=== PATIENT | male | born 1945 | race Caucasian/White ===

== ENCOUNTER 2018-01-12 08:10 | Inpatient (IN) ==
[2018-01-12] MEDS ORDERED: Chlorhexidine Gluconate 2% 1 Pack (2 Cloths) TOPICAL ONE (09:15)
[2018-01-12] MEDS ORDERED: Chlorhexidine 4% Topical 120 APPLIC/120 ML Bottle TOPICAL SCH (09:15)
[2018-01-12] MEDS ORDERED: Sodium Chlor 0.9% Inj 500 ML IV.CONT ONE (09:15)
[2018-01-12] MEDS ORDERED: Metoprolol Tartrate 25 MG Tablet PO ONE (09:15)
[2018-01-12] MEDS ORDERED: Post-op Orders (for Pharmacy) OTHER STA (09:39)
[2018-01-12] MEDS ORDERED: HYDROmorphone PF Inj 1 MG/ML Ampul IV.PUSH PRN (09:39)
[2018-01-12] MEDS ORDERED: Allopurinol 100 MG Tablet PO PRN (09:40)
[2018-01-12] MEDS ORDERED: Dexamethasone Inj 20 MG/5 ML Vial IV.PUSH ONE (10:00)
[2018-01-12] MEDS ORDERED: Tranexamic Acid Inj 3,000 MG in Sodium Chlor 0.9% Inj 100 ML P-ARTICULR SCH (10:00)
[2018-01-12] MEDS ORDERED: Sodium Chlor 0.9% Inj 40 ML, Bupivacaine Liposo PF 1.3% Inj 20 ML P-ARTICULR SCH ×2 (10:00)
[2018-01-12] MEDS ORDERED: SODIUM CHLOR 0.9% IV.SIG SCH (10:00)
[2018-01-12] MEDS ORDERED: TRANEXAMIC ACID IV.SIG SCH (10:00)
[2018-01-12] MEDS ORDERED: Vancomycin Inj 1,000 MG in Sodium Chlor 0.9% Inj 250 ML IV.SIG SCH (10:00)
[2018-01-12] MEDS ORDERED: ceFAZolin 2 GM Premix Inj 2 GM/50 ML PIGGYBACK IV.SIG SCH (10:00)
[2018-01-12] MEDS ORDERED: fentaNYL Citrate Inj 250 MCG/5 ML Ampul ONE (10:09)
[2018-01-12] MEDS ORDERED: Famotidine PF Inj 20 MG/2 ML Vial ONE (10:09)
[2018-01-12] MEDS ORDERED: fentaNYL Citrate Inj 100 MCG/2 ML Ampul ONE (10:09)
[2018-01-12] MEDS ORDERED: Neostigmine Inj 5 MG/5 ML Syringe IV.PUSH ONE (10:42)
[2018-01-12] MEDS ORDERED: Glycopyrrolate Inj 1 MG/5 ML Syringe IV.PUSH ONE (10:42)
[2018-01-12] MEDS ORDERED: Phenylephrine/NS 1000 MCG/10ML Syringe IV.PUSH ONE (10:42)
[2018-01-12] MEDS ORDERED: *morphine SULFATE 4 MG/ML PERIprocedure ONLY ONE (13:41)
--- NOTE | 2018-01-12 14:07 | XR ---
EXAM DATE: 01/12/2018 1:46 PM EST AGE/SEX: 72 years / Male INDICATIONS: Post op right hip. CLINICAL DATA: This is the patient's initial encounter. Patient reports that signs and symptoms have been present for 1 day and indicates a pain score of Nonresponsive. MEDICAL/SURGICAL HISTORY: None. None. COMPARISON: No prior exams available for comparison. FINDINGS: Status post placement of a right hip prosthesis. There is good position and alignment of the right hi p prosthesis. The bony structures are grossly intact. CONCLUSION: Good position and alignment on this postoperative study. Electronically signed by: Denis Babb MD 01/12/2018 2:06 PM EST
[2018-01-12] MEDS ORDERED: *morphine SULFATE 10 MG/ML PERIprocedure ONLY ONE (14:46)
--- NOTE | 2018-01-12 14:49 | MP ---
cc: Alfonso Sanchez MD DATE OF OPERATION: 01/12/2018 PREOPERATIVE DIAGNOSIS: Right hip osteoarthritis. POSTOPERATIVE DIAGNOSIS: Right hip osteoarthritis. PROCEDURE PERFORMED: Right total hip arthroplasty. SURGEON: Alfonso Sanchez MD STOPE MINER: SONAL León ANESTHESIA: General. ESTIMATED BLOOD LOSS: 200 mL COMPLICATIONS: None. IMPLANT USED: DePuy Corail size 14 press-fit standard offset femoral stem, size 52, solid [place] Gription cup, size 36 mm +4 high offset posterior high wall highly cross-linked polyethylene liner, 36 mm ceramic head, +1.5 neck. JUSTIFICATION: This patient is a 72-year-old male with history of severe osteoarthrosis involving the right hip joint. He has severe disabling pain with standing, walking, ambulation, weightbearing activities and severe pain at rest. He has failed greater than 3 months of nonoperative conservative treatment to include medication therapy, injections, ambulatory assistive aids, home exercise program, activity modification and weight loss. X-rays of the right hip reveal severe osteoarthritis with [id number] joint space narrowing, subchondral sclerosis, subchondral cyst, osteophyte formation with deformity and subluxation. The patient was counseled on risks, benefits, and alternatives to a total hip arthroplasty. The risks were discussed, which include, but are not limited to anesthesia, bleeding, infection, damage to nerves and blood vessels, pain, stiffness, fracture dislocations, leg length discrepancies blood clots problems and even . The patient's pain is severe. He favored the benefits over the risks and he did wish to proceed with surgery. 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 I have discussed this with the patient in detail and again he favored the risks over the benefits and did wish to proceed with surgery. PROCEDURE IN DETAIL: Written consent was obtained. The patient was identified by name, taken to the operating room and placed supine on the operating table. General anesthesia administered. The patient was instilled 2 grams of IV Ancef and 1 gram of IV vancomycin with a gel pad placed. The patient was then carefully turned to a left lateral decubitus position. A padded arm roll was placed. All bony prominences and compression points were extremely well padded with extreme careful attention paid due to the patient's skin condition. The right hip and right lower extremity were then prepped and draped using isopropyl alcohol, Hibiclens solution and ChloraPrep solution. I did not use Ioban because of the skin condition, but did place sterile towels all around the wound and had a completely sterile field and prep without any adhesions. After a timeout was performed, a longitudinal incision was made over the posterolateral aspect of the right hip. The fascial layer was incised and retracted. The piriformis and capsule was incised and tagged with #2 FiberWire suture. The hip was then dislocated posteriorly. An oscillating saw was used to perform a femoral neck cut. The osteoarthritic femoral head and neck component was removed. A 10-blade scalpel was used to excise the labrum. Sequential reaming began at size 47 and was carried through to size 52. A solid [place] 52 mm Gription cup was implanted in approximately 45 degrees of abduction and 15 degrees of anteversion. There was good purchase and fixation after insertion of the cup. A screw hole ____ was placed, followed by the +4, 15-degree posterior high wall high cross-linked polyethylene liner. The liner was impacted in placed and tested for stability. Attention was turned to the femur where a box osteotome was used in the intramedullary canal of the femur, followed by canal finder and lateralizing reamer. Sequential broaching up to a size 14; this was followed by calcar planer. were evaluated and final components implanted with the current components. The leg achieved full extension and external rotation without evidence of anterior instability or impingement. The hip could be flexed to 90 degrees and internally rotated to 70 degrees before evidence of posterior stability. Soft tissue tension was appropriate and clinically the leg lengths felt relatively symmetric. The surgical wound was thoroughly irrigated with sterile saline pule lavage antibiotic impregnated solution. The piriformis and capsule were repaired with #2 Fiberwire suture. The fascial layer was closed with #1-Vicryl suture, subcutaneous layer with 2-0 Vicryl suture. Skin was closed with Dermabond. Sterile dressing were applied. The patient tolerated the procedure well. No intraoperative complications noted. Khoa Feldman, Physician Commissioned Security Officer-Certified was present during the entire procedure to include patient positioning, the procedure itself. The medical necessity of a physician certified physician's assistant was indicated in this case due to the complexity of the procedure. He assisted with appropriate manipulation of the leg and also retraction of muscle, tendon bone and neurovascular structures. He assisted with preparation of bone and also implantation of the prosthetic replacement. MD SUKHDEV Larios/aki/alyssa , 12:32 PM , 12:43 PM
[2018-01-12] MEDS: ceFAZolin 2 GM Premix Inj 2 GM/50 ML PIGGYBACK IV.SIG SCH ×2 (16:29→23:19)
[2018-01-12] MEDS: Multivitamin/Minerals Therapeutic Tablet PO SCH (20:34)
[2018-01-12] MEDS: Senna/Docusate Sodium 8.6/50 MG Tablet PO SCH (20:34)
[2018-01-12] MEDS ORDERED: Zolpidem Tartrate 5 MG Tablet PO PRN (21:00)
[2018-01-13] MEDS: ceFAZolin 2 GM Premix Inj 2 GM/50 ML PIGGYBACK IV.SIG SCH (04:52)
[2018-01-13] MEDS: Multivitamin/Minerals Therapeutic Tablet PO SCH ×2 (08:38→20:33)
[2018-01-13] MEDS: Lisinopril 10 MG Tablet PO SCH (08:38)
[2018-01-13] MEDS: Senna/Docusate Sodium 8.6/50 MG Tablet PO SCH ×2 (08:38→20:34)
--- NOTE | 2018-01-13 08:43 | P.DCO ---
- Physical Therapy Physical Therapy: Gait training, Safety evaluation, Transfer training, bed to chair Hip: Total hip, Protocol: Right, Posterior hip precautions Right Lower Extremity Weight Bearing: Weight bearing as tolerated - Nursing Nursing: Dressing changes Dressing changes: Do not change dressing, Daily dressing change - Certification Need for Home Health services: I have seen patient Akash Ridley on 01/13/18. My clinical findings support the need for the requested home health care services because: Need for Home Health Services: Limited ability to care for self, High risk of falls Homebound Certification: I certify that my clinical findings support that this patient is homebound because: Homebound Certification: Post-op weakness, Unsteady gait/balance
--- NOTE | 2018-01-13 08:44 | P.PNOP ---
Subjective Interval history: pain controlled. Physical Exam Vital signs: Vital Signs 01/12/18 09:00 01/12/18 12:59 01/12/18 13:00 Temperature 97.9 F 97.7 F Pulse Rate 65 79 63 Respiratory Rate 16 20 24 Blood Pressure 169/77 H 104/54 L 118/56 L Pulse Oximetry 95 93 L 93 L 01/12/18 13:15 01/12/18 13:30 01/12/18 13:45 Temperature Pulse Rate 69 68 60 Respiratory Rate 16 20 16 Blood Pressure 130/61 121/57 L 129/58 L Pulse Oximetry 96 97 98 01/12/18 14:00 01/12/18 14:45 01/12/18 17:00 Temperature 97.6 F Pulse Rate 64 64 66 Respiratory Rate 16 20 17 Blood Pressure 124/54 L 129/60 123/56 L Pulse Oximetry 95 96 95 01/12/18 17:15 01/12/18 20:46 01/13/18 00:05 Temperature 97.6 F 98.1 F 98.0 F Pulse Rate 67 74 74 Respiratory Rate 16 18 17 Blood Pressure 147/63 H 146/61 H 124/63 Pulse Oximetry 100 95 96 01/13/18 04:33 01/13/18 06:10 Temperature 97.9 F Pulse Rate 83 Respiratory Rate 18 Blood Pressure 168/72 H 148/70 H Pulse Oximetry 95 Intake & Output 01/12/18 01/13/18 01/13/18 18:59 06:59 18:59 Intake Total 2345.67 / 2345.67 1510 / 1510 Output Total 500 / 500 450 / 450 Balance 1845.67 / 1845.67 1060 / 1060 Weight 104.5 kg 113.2 kg Intake: IV 1545.67 / 1545.67 1150 / 1150 LR 1000 mL Inj 1,000 ML @ 80 1000 / 1000 1000 / 1000 mls/hr IV.CONT .[id number] GRISELDA Rx# :[id number] Cyklokapron Inj 1,567 MG In NS 115.67 / 115.67 Inj 100 ML @ 200 mls/hr IV.SIG ONCE GRISELDA Rx#:[id number] Vancomycin Inj 1,000 MG In NS 250 / 250 Inj 250 ML @ 250 mls/hr IV.SIG FANCY STITCHER GRISELDA Rx#:[id number] Ancef 2 GM Premix Inj 2 gm In 50 / 50 150 / 150 50 ml @ 100 mls/hr IV.SIG Q6H GRISELDA Rx#:[id number] Cyklokapron Inj 3,000 MG In NS 130 / 130 Inj 100 ML @ 200 mls/hr P- ARTICULR ONCE GRISELDA Rx#:[id number] Oral 360 / 360 Anesthesia Amount 800 / 800 Output: Urine 450 / 450 Estimated Blood Loss 500 / 500 Other: Date of Last Bowel Movement 01/12/18 # Bowel Movements 0 Weight On Admission 104.5 kg Narrative: in bed, nad dressing c/d/i no erythema, no blistering around incision neg homans nvi Results - Labs Laboratory Results - last 24 hr 01/12/18 09:05 Blood Type O Positive Blood Type Recheck Required Antibody Screen Negative - Imaging Impressions Hip X-Ray 01/12/18 09:38 CONCLUSION: Good position and alignment on this postoperative study. Assessment and Plan - Ortho Post Op Day # 1 - Assessment and Plan s/p R DAMARIS posterior approach wbat maintain dressing asa 81 d/c planning home with [facility] and pt - Tues/Wed depending on progress in PT f/up dr. medina 2 weeks
[2018-01-13 10:11] LABS: Hematocrit 40.9 % (39.0-51.0); Hemoglobin 13.8 gm/dL (13.0-17.0)
[2018-01-14] MEDS: Multivitamin/Minerals Therapeutic Tablet PO SCH ×3 (07:31→20:01)
[2018-01-14] MEDS: Senna/Docusate Sodium 8.6/50 MG Tablet PO SCH ×3 (07:32→20:01)
[2018-01-14] MEDS: Lisinopril 10 MG Tablet PO SCH ×2 (07:32→10:02)
--- NOTE | 2018-01-14 10:32 | P.PNOP ---
Subjective Interval history: painful, but doing ok. Physical Exam Vital signs: Vital Signs 01/13/18 12:00 01/13/18 16:00 01/13/18 20:02 Temperature 97.7 F 97.3 F L 98.2 F Pulse Rate 68 66 80 Respiratory Rate 18 16 20 Blood Pressure 125/56 L 125/60 147/67 H Pulse Oximetry 95 94 L 92 L 01/13/18 23:46 01/14/18 05:32 01/14/18 08:00 Temperature 97.8 F 97.8 F 98.1 F Pulse Rate 73 74 69 Respiratory Rate 18 16 19 Blood Pressure 139/63 149/66 H 181/77 H Pulse Oximetry 95 93 L 94 L 01/14/18 08:14 Temperature Pulse Rate Respiratory Rate 16 Blood Pressure Pulse Oximetry Intake & Output 01/13/18 01/14/18 01/14/18 18:59 06:59 18:59 Intake Total 500 / 500 Output Total 400 / 400 Balance 100 / 100 Intake: Oral 500 / 500 Output: Urine 400 / 400 Stool 0 / 0 Other: # Voids 1 Date of Last Bowel Movement 12/13/17 01/12/18 01/12/18 Narrative: sitting in chair, nad dressing c/d/i no erythema, no drainage around incision neg homans nvi Results - Labs CBC & Chem 7: 01/13/18 09:43 Assessment and Plan - Ortho Post Op Day # 2 - Assessment and Plan s/p R DAMARIS posterior approach wbat maintain dressing Brilinta d/c planning home with [facility] and pt - Wed depending on progress in PT f/up dr. medina 2 weeks
[2018-01-15 00:17] VITALS: RESP 18
--- NOTE | 2018-01-15 07:50 | P.PNOP ---
Subjective Interval history: feeling better Physical Exam Vital signs: Vital Signs 01/14/18 08:00 01/14/18 08:14 01/14/18 11:42 Temperature 98.1 F 97.7 F Pulse Rate 69 81 Respiratory Rate 19 16 19 Blood Pressure 181/77 H 166/68 H Pulse Oximetry 94 L 94 L 01/14/18 16:00 01/14/18 19:44 01/14/18 23:28 Temperature 98.8 F 97.2 F L 98.6 F Pulse Rate 78 83 83 Respiratory Rate 19 18 Blood Pressure 164/69 H 153/64 H 170/74 H Pulse Oximetry 96 95 95 01/15/18 00:00 Temperature Pulse Rate Respiratory Rate Blood Pressure 156/72 H Pulse Oximetry Intake & Output 01/14/18 01/15/18 01/15/18 18:59 06:59 18:59 Intake Total 480 / 480 Output Total 400 / 400 Balance 80 / 80 Weight 113.2 kg Intake: Oral 480 / 480 Output: Urine 400 / 400 Other: # Voids 1 1 Date of Last Bowel Movement 01/12/18 01/12/18 # Bowel Movements 0 Narrative: in bed, nad dressing c/d/i neg homans nvi Results - Labs CBC & Chem 7: 01/13/18 09:43 Assessment and Plan - Ortho Post Op Day # 3 - Assessment and Plan s/p R DAMARIS posterior approach wbat maintain dressing Brilinta d/c planning home with [facility] and pt - cleared f/up dr. medina 2 weeks
[2018-01-15] MEDS: Lisinopril 10 MG Tablet PO SCH (10:37)
[2018-01-15] MEDS: Multivitamin/Minerals Therapeutic Tablet PO SCH (10:37)
[2018-01-15 12:44] VITALS: BP 190/84; PULSE 73; TEMP 98.4; O2SAT 97
[2018-01-15] MEDS: Senna/Docusate Sodium 8.6/50 MG Tablet PO SCH (13:03)
== END 2018-01-15 15:31 | disposition home health service (06) ==
LOC: HSDI 08:10 → N06 17:16
PROVIDERS: ADMIT Orthopaedic Surgery Sports Medicine; ATTEND Orthopaedic Surgery Sports Medicine